=== PATIENT | male | born 1985 | race Caucasian/White ===

== ENCOUNTER 2017-04-11 10:21 | Emergency (ER) | payer OTHER ==
[~2017-04-11] VITALS: Ht 177.8 cm; Wt 72.6 kg
[~2017-04-11 10:21] MED LIST: ANAPROX DS550 MG PO; CLEOCIN150 MG PO; CYCLOBENZAPRINE5 M3 PO; KEFLEX500 MG PO; LOMOTIL 0.025 M1 TA1 PO; MOTRIN800 MG PO; NAPROSYN500 MG PO; NKHM; PHENERGAN25 M1 PO; ZOFRAN ODT4 MG SL
[2017-04-11] MEDS ORDERED: CYCLOBENZAPRINE10 MG PO (10:49)
[2017-04-11] MEDS ORDERED: NAPROSYN500 MG PO (10:49)
== END 2017-04-11 11:37 | disposition home or self-care (01) ==
LOC: ED 10:21
DX: M54.2 Cervicalgia (principal); Z88.1 Allergy status to other antibiotic agents; Z88.8 Allergy status to other drugs, medicaments and biological substances